=== PATIENT | male | born 1950 | race Caucasian/White ===

== ENCOUNTER 2020-08-26 20:17 | Emergency (ER) | payer OTHER ==
[2020-08-26] MEDS ORDERED: Acetaminophen/HYDROcodone 325-5 MG Tab PO ONE (20:18)
[2020-08-26 21:11] LABS: CHLORIDE,CL 101 mmol/L (98-107); SODIUM,NA 140 mmol/L (136-145)
--- NOTE | 2020-08-26 21:21 | CR ---
PROCEDURE INFORMATION: Exam: XR Left Ribs with PA Chest, 3 Views Exam date and time: 08/26/2020 8:39 PM Age: 70 years old Clinical indication: Injury or trauma; Fall; Rib area, left side; Blunt trauma; Injury date: 08/26/20; Additional info: Fall, pain TECHNIQUE: Imaging protocol: XR Left ribs 3 views with PA chest. COMPARISON: No relevant prior studies available. FINDINGS: Lungs: There is mild nonspecific patchy linear density at left lung base which could be atelectatic, or inflammatory. The right lung is clear. Pleural spaces: No pleural effusion. No pneumothorax. Bilateral lateral pleural thickening likely reflect subpleural fat deposition. Heart/Mediastinum: The heart is not enlarged. Bones/joints: No rib fracture seen. No acute bony findings are identified. IMPRESSION: There is mild nonspecific patchy linear density at left lung base which could be atelectatic, or inflammatory.
--- NOTE | 2020-08-26 21:25 | EDM.PDOC ---
ED HPI GENERAL MEDICAL PROBLEM - General Chief Complaint: Head Injury Stated Complaint: FELL ON ICE, DIZZY Time Seen by Provider: 08/26/20 21:00 Source of Information: Reports: Patient, Family, RN, RN Notes Reviewed History Limitations: Reports: No Limitations - History of Present Illness INITIAL COMMENTS - FREE TEXT/NARRATIVE: Patient is a 70-year-old male who presents to ER with complaint of slipping on the ice. States it happened around 6 PM this evening. Patient states he hit his left shoulder, left rib area, and head on the ground. Patient complains of pain to the left ribs, left shoulder. Denies headache at this time does complain of some neck pain. Denies loss of consciousness with the fall. States he was dizzy right away after the fall but this has since resolved. Patient rates current pain at a 4/10. Patient admits to some shortness of breath due to the pain in the rib area. Denies any exposure to Covid, states he has never had Covid. Onset: Today, Sudden Left Chest Pain Score (Numeric/FACES): 4 - Related Data Allergies Allergy/AdvReac Type Severity Reaction Status Date / Time NSAIDS (Non-Steroidal Allergy Abdominal Verified 08/26/20 20:28 Anti-Inflamma Pain Home Meds: Home Meds Losartan Potassium 25 mg PO DAILY 08/26/20 [History] atorvaSTATin Calcium [Atorvastatin Calcium] 80 mg PO DAILY 08/26/20 [History] hydroCHLOROthiazide [Hydrochlorothiazide] 12.5 mg PO DAILY 08/26/20 [History] Past Medical History Cardiovascular History: Reports: High Cholesterol, Hypertension - Past Surgical History HEENT Surgical History: Reports: Other (See Below) Other HEENT Surgeries/Procedures: torn retinal repair Musculoskeletal Surgical History: Reports: Arthroscopic Knee Social & Family History - Tobacco Use Tobacco Use Status *Q: Never Tobacco User Second Hand Smoke Exposure: No - Recreational Drug Use Recreational Drug Use: No ED ROS GENERAL - Review of Systems Review Of Systems: Comprehensive ROS is negative, except as noted in HPI. ED EXAM, HEAD INJURY - Physical Exam Exam: See Below Exam Limited By: No Limitations General Appearance: Alert, WD/WN, Mild Distress Head: Atraumatic, Normocephalic Nexus Criteria: Posterior, Midline Cervical Tenderness, Painful Distraction Injuries (Left shoulder, left ribs). No: Evidence of Intoxication, Altered Level of Consciousness, Focal Neurological Deficit Eyes: Bilateral Eye: EOMI, Normal Inspection, PERRL Ears: Normal External Exam, Hearing Grossly Normal Nose: Normal Inspection Throat/Mouth: Normal Inspection, Normal Voice, No Airway Compromise Neck: Normal Alignment, Tenderness (Left), Tender Lateral (Left) Respiratory: No Respiratory Distress, No Accessory Muscle Use, Chest Non-Tender, Decreased Breath Sounds, Other (Tender left ribs) Cardiovascular: Normal Peripheral Pulses, Regular Rate, Rhythm, No Edema, No Gallop, No JVD, No Murmur, No Rub GI/Abdominal Exam: Normal Bowel Sounds, Soft, Non-Tender (Male) Exam: Deferred Rectal (Males) Exam: Deferred Back Exam: Normal Inspection, Decreased Range of Motion Extremities: Normal Inspection, No Pedal Edema, Normal Capillary Refill, Limited Range of Motion (left shoulder) Neurologic: base filler II-XII nml As Tested, No Motor/Sensory Deficits, Alert, Normal Mood/Affect, Oriented x 3 Skin: Normal Color, Warm/Dry - Chapin Coma Score Best Eye Response (Chapin): (4) Open Spontaneously Best Verbal Response (Chapin): (5) Oriented Best Motor Response (Chapin): (6) Obeys Commands Chapin Total: 15 Course - Vital Signs Last Recorded V/S: Last Vital Signs Temp 98.5 F 08/26/20 20:25 Pulse 86 08/26/20 20:25 Resp 18 08/26/20 20:25 BP 153/88 H 08/26/20 20:25 Pulse Ox 94 L 08/26/20 20:25 - Orders/Labs/Meds Labs: Laboratory Tests 08/26/20 08/26/20 08/26/20 Range/Units 20:45 20:45 21:29 WBC 8.0 (5.0-10.0) 10^3/uL RBC 4.80 (4.6-6.2) 10^6/uL Hgb 15.4 (14.0-18.0) g/dL Hct 44.4 (40.0-54.0) % MCV 92.5 (80-100) fL MCH 32.1 (27.0-34.0) pg MCHC 34.7 (33.0-35.0) g/dL Plt Count 170 (150-450) 10^3/uL Neut % (Auto) 62.2 (42.2-75.2) % Lymph % (Auto) 23.9 (20.5-50.1) % Cochran % (Auto) 11.6 H (2-8) % Eos % (Auto) 1.9 (1.0-3.0) % Baso % (Auto) 0.4 (0.0-1.0) % Sodium 140 (136-145) mmol/L Potassium 4.0 (3.5-5.1) mmol/L Chloride 101 (98-107) mmol/L Carbon Dioxide 30 (21-32) mmol/L Anion Gap 13.0 (7-13) mEq/L BUN 22 H (7-18) mg/dL Creatinine 0.97 (0.70-1.30) mg/dL Est Cr Clr Drug Dosing 74.21 mL/min Estimated GFR (MDRD) > 60 BUN/Creatinine Ratio 22.7 (No establ ref range) Glucose 104 H (74-99) mg/dL Calcium 9.1 (8.5-10.1) mg/dL Total Bilirubin 0.5 (0.2-1.0) mg/dL AST 19 (15-37) U/L ALT 37 (16-63) U/L Alkaline Phosphatase 72 (46-116) U/L Total Protein 7.8 (6.4-8.2) g/dL Albumin 4.3 (3.4-5.0) g/dL Globulin 3.5 Albumin/Globulin Ratio 1.2 Urine Color Yellow (YELLOW) Urine Appearance Slightly cloudy (CLEAR) Urine pH 5.0 (5.0-9.0) Ur Specific Hayes >= 1.030 (1.005-1.030) Urine Protein Negative (NEGATIVE) Urine Glucose (UA) Negative (NEGATIVE) Urine Ketones Negative (NEGATIVE) Urine Occult Blood Moderate H (NEGATIVE) Urine Nitrite Negative (NEGATIVE) Urine Bilirubin Negative (NEGATIVE) Urine Urobilinogen 0.2 (0.2-1.0) mg/dL Ur Leukocyte Esterase Negative (NEGATIVE) Urine RBC 20-30 H /HPF Urine WBC 0-5 (0-5/HPF) /HPF Ur Epithelial Cells Rare (NOT SEEN) /HPF Urine Bacteria Rare (0-FEW/HPF) /HPF Urine Mucus Few H (NOT SEEN) /LPF Meds: Medications Discontinued Medications Generic Name Dose Route Start Last Admin Trade Name Freq PRN Reason Stop Dose Admin Hydrocodone Bitart/Acetaminophen 1 tab 08/26/20 23:53 08/27/20 00:05 [employer] 325-10 Mg PO 08/26/20 23:54 1 tab ONETIME ONE Administration Iopamidol 100 ml 08/26/20 21:45 08/26/20 23:08 Isovue-300 (61%) IVPUSH 08/26/20 21:46 100 ml ONETIME ONE Administration Iopamidol 50 ml 08/26/20 23:27 08/26/20 23:38 Isovue-300 (61%) IVPUSH 08/26/20 23:28 25 ml ONETIME ONE Administration - Radiology Interpretation Free Text/Narrative:: Rib xray left: PROCEDURE INFORMATION: Exam: XR Left Ribs with PA Chest, 3 Views Exam date and time: 08/26/2020 8:39 PM Age: 70 years old Clinical indication: Injury or trauma; Fall; Rib area, left side; Blunt trauma; Injury date: 08/26/20; Additional info: Fall, pain TECHNIQUE: Imaging protocol: XR Left ribs 3 views with PA chest. COMPARISON: No relevant prior studies available. FINDINGS: Lungs: There is mild nonspecific patchy linear density at left lung base which could be atelectatic, or inflammatory. The right lung is clear. Pleural spaces: No pleural effusion. No pneumothorax. Bilateral lateral pleural thickening likely reflect subpleural fat deposition. Heart/Mediastinum: The heart is not enlarged. Bones/joints: No rib fracture seen. No acute bony findings are identified. IMPRESSION: There is mild nonspecific patchy linear density at left lung base which could be atelectatic, or inflammatory. Thank you for allowing us to participate in the care of your patient. Dictated and Authenticated by: Derek Marina MD 08/26/2020 9:21 PM Central Time ([place] & [place]) Head CT wo contrast: PROCEDURE INFORMATION: Exam: CT Head Without Contrast Exam date and time: 08/26/2020 8:44 PM Age: 70 years old Clinical indication: Injury or trauma; Fall; Blunt trauma (contusions or hematomas); Additional info: Fall, weaness, dizziness TECHNIQUE: Imaging protocol: Computed tomography of the head without contrast. Radiation optimization: All CT scans at this facility use at least one of these dose optimization techniques: automated exposure control; mA and/or kV adjustment per patient size (includes targeted exams where dose is matched to clinical indication); or iterative reconstruction. COMPARISON: No relevant prior studies available. FINDINGS: Brain: The wooten-white differentiation is preserved. No intracranial mass collection or hemorrhage is seen. Cerebral ventricles: The ventricular size and sulcal pattern is normal. Bones/joints: The temporal bones are symmetric and unremarkable. Paranasal sinuses: The visualized paranasal sinuses are normal. Mastoid air cells: Mastoid air cells well aerated. Vasculature: There is mild diffuse calcific atherosclerotic plaque. Soft tissues: There is no soft tissue abnormality seen. IMPRESSION: No acute intracranial findings. Thank you for allowing us to participate in the care of your patient. Dictated and Authenticated by: Derek Marina MD 08/26/2020 9:25 PM Central Time ([place] & [place]) Left shoulder xray: PROCEDURE INFORMATION: Exam: XR Left Shoulder Exam date and time: 08/26/2020 9:57 PM Age: 70 years old Clinical indication: Injury or trauma; Fall; Blunt trauma (contusions or hematomas); Shoulder; Left; Additional info: Fall, neck pain TECHNIQUE: Imaging protocol: XR Left shoulder. Views: 2 or more views. COMPARISON: No relevant prior studies available. FINDINGS: Bones/joints: There is advanced degenerative change involving the left glenohumeral joint with advanced joint space narrowing, extensive sclerotic and cystic change on both sides of the joint and severe osteophyte formation. There is no evidence of acute fracture. There is no subluxation or dislocation. Soft tissues: There is no soft tissue abnormality seen. IMPRESSION: 1. Fairly advanced degenerative changes as described 2. There is no evidence of acute fracture. Thank you for allowing us to participate in the care of your patient. Dictated and Authenticated by: Derek Marina MD 08/26/2020 11:08 PM Central Time ([place] & [place]) CT Chest Abdomen/Pelvis with contrast: PROCEDURE INFORMATION: Exam: CT Cervical Spine Without Contrast Exam date and time: 08/26/2020 10:03 PM Age: 70 years old Clinical indication: Injury or trauma; Fall; Blunt trauma; Additional info: Fall, neck pain TECHNIQUE: Imaging protocol: Computed tomography images of the cervical spine without contrast. Radiation optimization: All CT scans at this facility use at least one of these dose optimization techniques: automated exposure control; mA and/or kV adjustment per patient size (includes targeted exams where dose is matched to clinical indication); or iterative reconstruction. COMPARISON: No relevant prior studies available. FINDINGS: Bones/joints: Near anatomic alignment. The facets are appropriately oriented. The facet joints demonstrate moderate degenerative hypertrophy and sclerosis. No posterior arch fracture seen. Discs/Spinal canal/Neural foramina: Mild disc space narrowing throughout the cervical segment.There is no evidence of acute fracture.No significant compressive lesion is seen. Lungs: The visualized portions of the lung apices are normal. Vasculature: There is moderate diffuse calcific atherosclerotic plaque. Soft tissues: There is no soft tissue abnormality seen. IMPRESSION: There is no evidence of acute fracture. Thank you for allowing us to participate in the care of your patient. Dictated and Authenticated by: Derek Marina MD 08/26/2020 11:22 PM Central Time ([place] & [place]) CT Cspine wo contrast: PROCEDURE INFORMATION: Exam: CT Cervical Spine Without Contrast Exam date and time: 08/26/2020 10:03 PM Age: 70 years old Clinical indication: Injury or trauma; Fall; Blunt trauma; Additional info: Fall, neck pain TECHNIQUE: Imaging protocol: Computed tomography images of the cervical spine without contrast. Radiation optimization: All CT scans at this facility use at least one of these dose optimization techniques: automated exposure control; mA and/or kV adjustment per patient size (includes targeted exams where dose is matched to clinical indication); or iterative reconstruction. COMPARISON: No relevant prior studies available. FINDINGS: Bones/joints: Near anatomic alignment. The facets are appropriately oriented. The facet joints demonstrate moderate degenerative hypertrophy and sclerosis. No posterior arch fracture seen. Discs/Spinal canal/Neural foramina: Mild disc space narrowing throughout the cervical segment.There is no evidence of acute fracture.No significant compressive lesion is seen. Lungs: The visualized portions of the lung apices are normal. Vasculature: There is moderate diffuse calcific atherosclerotic plaque. Soft tissues: There is no soft tissue abnormality seen. IMPRESSION: There is no evidence of acute fracture. Thank you for allowing us to participate in the care of your patient. Dictated and Authenticated by: Derek Marina MD 08/26/2020 11:22 PM Central Time ([place] & [place]) See rad report Departure - Departure Time of Disposition: 23:54 Disposition: Home, Self-Care 01 Condition: Fair Clinical Impression: Rib fracture Qualifiers: Encounter type: initial encounter Rib fracture type: single rib Fracture type: closed Laterality: left Qualified Code(s): S22.32XA - Fracture of one rib, left side, initial encounter for closed fracture Fall Qualifiers: Encounter type: initial encounter Qualified Code(s): W19.XXXA - Unspecified fall, initial encounter Hematuria Qualifiers: Hematuria type: unspecified type Qualified Code(s): R31.9 - Hematuria, unspecified - Discharge Information *PRESCRIPTION DRUG MONITORING PROGRAM REVIEWED*: No *COPY OF PRESCRIPTION DRUG MONITORING REPORT IN PATIENT JOYCE: No Instructions: Concussion, Adult, [id number], Post-Concussion Syndrome, [id number], Rib Fracture, [id number], Hematoma, [id number], Hematuria, Adult Forms: ED Department Discharge Additional Instructions: Follow up with Dany Fraser regarding blood in urine, and thyroid nodule RX: [employer] as directed for pain Rest Cough and deep breathe frequently to prevent pneumonia Return to the Er with any worsening of problems Sepsis Event Note (ED) - Evaluation Sepsis Screening Result: No Definite Risk - Focused Exam Vital Signs: Vital Signs Temp Pulse Resp BP Pulse Ox 08/26/20 20:25 98.5 F 86 18 153/88 H 94 L
[2020-08-26] MEDS ORDERED: Iopamidol 612 MG/ML 100 ML Bottle IVPUSH ONE (21:45)
--- NOTE | 2020-08-26 23:08 | CR ---
PROCEDURE INFORMATION: Exam: XR Left Shoulder Exam date and time: 08/26/2020 9:57 PM Age: 70 years old Clinical indication: Injury or trauma; Fall; Blunt trauma (contusions or hematomas); Shoulder; Left; Additional info: Fall, neck pain TECHNIQUE: Imaging protocol: XR Left shoulder. Views: 2 or more views. COMPARISON: No relevant prior studies available. FINDINGS: Bones/joints: There is advanced degenerative change involving the left glenohumeral joint with advanced joint space narrowing, extensive sclerotic and cystic change on both sides of the joint and severe osteophyte formation. There is no evidence of acute fracture. There is no subluxation or dislocation. Soft tissues: There is no soft tissue abnormality seen. IMPRESSION: 1. Fairly advanced degenerative changes as described 2. There is no evidence of acute fracture.
--- NOTE | 2020-08-26 23:20 | CT ---
PROCEDURE INFORMATION: Exam: CT Chest With Contrast; Diagnostic Exam date and time: 08/26/2020 10:03 PM Age: 70 years old Clinical indication: Other: Moderate blood in urine TECHNIQUE: Imaging protocol: Diagnostic computed tomography of the chest with contrast. Radiation optimization: All CT scans at this facility use at least one of these dose optimization techniques: automated exposure control; mA and/or kV adjustment per patient size (includes targeted exams where dose is matched to clinical indication); or iterative reconstruction. Contrast material: [id number]; Contrast volume: 125 ml; Contrast route: INTRAVENOUS (IV); COMPARISON: CR Ribs 2V w Chest Lt 08/26/2020 8:39 PM FINDINGS: Thyroid: 23 mm right thyroid nodule. Lungs: The central pulmonary arteries are normalThere are minor subpleural atelectatic densities in the dependent portions of the lungs. The lungs are otherwise clear. Pleural spaces: No pleural effusion. No pneumothorax. Heart: The heart is not enlarged. There is moderate atherosclerotic calcification of the coronary arteries. Aorta: There is mild diffuse calcific and noncalcific atherosclerotic plaque. The thoracic aorta is otherwise normal. No aneurysm. No dissection. Lymph nodes: There is no evidence of lymphadenopathy. Bones/joints: Question nondisplaced fracture anterolateral left 7th rib. No other suspect left rib fractures are seen. No left rib abnormality seen. There is severe endplate sclerosis and osteophyte formation throughout the thoracic segment. The sternum is normal. Soft tissues: There is no soft tissue abnormality seen. IMPRESSION: 1. Question nondisplaced left anterior 7th rib fracture. Correlate with physical findings. 2. No pleural effusion. No pneumothorax. 3. 23 mm right thyroid nodule. Ultrasound recommended. COMMENTS: Consistent with the [employer]'s Incidental Findings Committee white paper (J Am August Radiol 2015): In patients aged 35 years and older with an incidental thyroid nodule equal to or greater than 1.[address], MRI or extrathyroidal US, further evaluation with dedicated thyroid US is recommended for patients with normal life expectancy and without comorbidities. For smaller nodules without suspicious features, no further evaluation or follow up is recommended. PROCEDURE INFORMATION: Exam: CT Abdomen And Pelvis With Contrast Exam date and time: 08/26/2020 10:03 PM Age: 70 years old Clinical indication: Other: Moderate blood in urine TECHNIQUE: Imaging protocol: Computed tomography of the abdomen and pelvis with contrast. Radiation optimization: All CT scans at this facility use at least one of these dose optimization techniques: automated exposure control; mA and/or kV adjustment per patient size (includes targeted exams where dose is matched to clinical indication); or iterative reconstruction. Contrast material: [id number]; Contrast volume: 125 ml; Contrast route: INTRAVENOUS (IV); COMPARISON: CR Ribs 2V w Chest Lt 08/26/2020 8:39 PM FINDINGS: Liver: The liver is normal. Gallbladder and bile ducts: The gallbladder is normal. There is no evidence of biliary ductal dilation. Pancreas: The pancreas is normal. Spleen: The spleen is normal. Adrenal glands: The adrenal glands are normal. Kidneys and ureters: 32 mm simple cyst in the right kidney. No further workup is recommended. 14 mm simple cyst in the left kidney. No further workup is recommended. There is no evidence of hydronephrosis. There is no evidence of urolithiasis. The ureters are normal. There is mild bilateral perinephric inflammatory stranding symmetric in nature, likely results of prior or current inflammatory episodes. Stomach and bowel: Non-specific/nonobstructive intestinal gas pattern. Appendix: The appendix is not specifically identified. There is no evidence of fluid or inflammatory stranding at the base of the cecum. Intraperitoneal space: No free air. No free fluid. Vasculature: There is no aortic aneurysm. There is moderate diffuse calcific atherosclerotic plaque. Lymph nodes: There is no adenopathy. Urinary bladder: Bladder is largely obscured by artifact from the hips, no gross bladder abnormality seen. Reproductive: The prostate demonstrates moderate nonspecific enlargement. The seminal vesicles are normal. Bones/joints: The patient has undergone bilateral total hip replacements. The prosthetic devices are grossly intact. The the devices are creating significant extensive artifact which is substantially limiting pelvic detail. There is moderate disc space narrowing and endplate sclerosis and osteophyte formation identified throughout the lumbar segment. Moderate diffuse facet disease throughout. There is no evidence of acute fracture. Soft tissues: There is a moderate fat containing right inguinal hernia. No bowel loops are involved. There is no soft tissue abnormality seen. IMPRESSION: 1. No acute urinary tract abnormalities are seen. Bladder visualization is extremely limited due to artifact from the hip replacements. 2. No sign of acute trauma in the abdomen or pelvis otherwise. 3. 32 mm simple cyst in the right kidney. No further workup is recommended. 4. 14 mm simple cyst in the left kidney. No further workup is recommended. COMMENTS: Consistent with the [employer]'s Incidental Findings Committee white paper (J Am August Radiol 2018): Any incidental renal lesion less than 1 cm or classified as too small to characterize, or any incidental cystic renal lesion characterized as simple-appearing, is likely benign. No follow-up imaging is recommended for these lesions per consensus recommendations based on imaging criteria.
--- NOTE | 2020-08-26 23:22 | CT ---
PROCEDURE INFORMATION: Exam: CT Cervical Spine Without Contrast Exam date and time: 08/26/2020 10:03 PM Age: 70 years old Clinical indication: Injury or trauma; Fall; Blunt trauma; Additional info: Fall, neck pain TECHNIQUE: Imaging protocol: Computed tomography images of the cervical spine without contrast. Radiation optimization: All CT scans at this facility use at least one of these dose optimization techniques: automated exposure control; mA and/or kV adjustment per patient size (includes targeted exams where dose is matched to clinical indication); or iterative reconstruction. COMPARISON: No relevant prior studies available. FINDINGS: Bones/joints: Near anatomic alignment. The facets are appropriately oriented. The facet joints demonstrate moderate degenerative hypertrophy and sclerosis. No posterior arch fracture seen. Discs/Spinal canal/Neural foramina: Mild disc space narrowing throughout the cervical segment.There is no evidence of acute fracture.No significant compressive lesion is seen. Lungs: The visualized portions of the lung apices are normal. Vasculature: There is moderate diffuse calcific atherosclerotic plaque. Soft tissues: There is no soft tissue abnormality seen. IMPRESSION: There is no evidence of acute fracture.
[2020-08-26] MEDS ORDERED: Iopamidol 612 MG/ML 50 ML SDV IVPUSH ONE (23:27)
[2020-08-26] MEDS ORDERED: Acetaminophen/HYDROcodone 325-10 MG Tab PO ONE (23:53)
[2020-08-27] MEDS ORDERED: Acetaminophen/HYDROcodone 325-10 MG Tab ONE (00:32)
== END 2020-08-27 00:48 | disposition home or self-care (01) ==
LOC: DL.ED 20:17
DX: S22.32XA Fracture of one rib, left side, initial encounter for closed fracture (principal); Z88.8 Allergy status to other drugs, medicaments and biological substances; R31.9 Hematuria, unspecified; W00.0XXA Fall on same level due to ice and snow, initial encounter
CPT/HCPCS: 36415; 70450; 71101; 71260; 72125; 73030; 74177; 80053; 81001; 85025; 99284; A9270; Q9967

== ENCOUNTER 2025-02-15 14:27 | Inpatient (IN) | payer MEDICARE, OTHER ==
[2025-02-15] MEDS ORDERED: Sodium Chloride 0.9% 10 ML Syringe FLUSH PRN ×2 (15:09)
[2025-02-15] MEDS: Nystatin Topical Powder 60 GM Bottle TOP SCH (15:24)
[2025-02-15] MEDS: Potassium Chloride 10% 20 MEQ/15 ML Soln 15 ML UD Cup PO SCH (17:20)
[2025-02-15] MEDS: Sodium Chloride 0.9% 10 ML Syringe FLUSH SCH (21:55)
[2025-02-15] MEDS: Heparin Sodium 5,000 Units/ML Vial SUBCUT SCH (21:55)
[2025-02-16] MEDS: methylPREDNISolone Sodium Succinate 40 MG/1 ML SDV IVPUSH SCH (09:27)
[2025-02-19 06:32] LABS: PLATELET COUNT,PLT 244 10^3/uL (150-450); RED BLOOD CELL COUNT 3.59 10^6/uL (4.6-6.2); WHITE BLOOD CELL COUNT,WBC 10.4 10^3/uL (5.0-10.0)
[2025-02-19 06:42] LABS: BLOOD UREA NITROGEN,BUN 29.0 mg/dL (7-18); CARBON DIOXIDE,CO2 29.0 mmol/L (21-32); CHLORIDE,CL 104.0 mmol/L (98-107); CREATININE 0.85 mg/dL (0.70-1.30); EST CRCL DRUG DOSING (CG) 84.95 mL/min; GLUCOSE RANDOM 89.0 mg/dL (70-99); POTASSIUM,K 4.4 mmol/L (3.5-5.1); SODIUM,NA 139.0 mmol/L (136-145)
[2025-02-19 06:44] LABS: ESTIMATED GFR 92.0 mL/min (>=60)
[2025-02-19 07:02] LABS: BASOPHILS PERCENT AUTO 0.1 % (0.0-1.0); EOSINOPHILS PERCENT AUTO 0.4 % (1.0-3.0); LYMPHOCYTES PERCENT AUTO 27.0 % (20.5-50.1); MONOCYTES PERCENT AUTO 10.1 % (2-8); NEUTROPHILS PERCENT AUTO 62.4 % (42.2-75.2)
[2025-02-19 08:17] LABS: LYMPHOCYTES PERCENT MAN 35 % (20-50); MONOCYTES PERCENT MAN 8 % (2-8); SEG NEUTROPHILS PERCENT MAN 57 % (42-75)
[2025-02-19 15:04] LABS: T4 FREE 0.87 ng/dL (0.76-1.46); TSH ULTRASENSITIVE 3.51 uIU/mL (0.36-3.74)
[2025-02-20 06:33] LABS: PLATELET COUNT,PLT 229 10^3/uL (150-450); RED BLOOD CELL COUNT 3.59 10^6/uL (4.6-6.2); WHITE BLOOD CELL COUNT,WBC 10.8 10^3/uL (5.0-10.0)
[2025-02-20 06:37] LABS: LYMPHOCYTES PERCENT AUTO 24.5 % (20.5-50.1); NEUTROPHILS PERCENT AUTO 65.0 % (42.2-75.2)
[2025-02-20 06:38] LABS: BASOPHILS PERCENT AUTO 0.1 % (0.0-1.0); EOSINOPHILS PERCENT AUTO 0.3 % (1.0-3.0); MONOCYTES PERCENT AUTO 10.1 % (2-8)
[2025-02-20 07:07] LABS: BAND PERCENT MAN 2 %; EOSINOPHILS PERCENT MAN 1 % (1-3); LYMPHOCYTES PERCENT MAN 16 % (20-50); MONOCYTES PERCENT MAN 11 % (2-8); SEG NEUTROPHILS PERCENT MAN 70 % (42-75)
== END 2025-02-21 11:57 | disposition home health service (06) | DRG 948 ==
LOC: DL.MS 15:15
PROVIDERS: ADMIT Internal Medicine; ATTEND Student in an Organized Health Care Education/Training Program
DX: R53.1 Weakness (principal); G20.A1 Parkinson's disease without dyskinesia, without mention of fluctuations; G40.909 Epilepsy, unspecified, not intractable, without status epilepticus; I50.9 Heart failure, unspecified; E78.00 Pure hypercholesterolemia, unspecified; N40.0 Benign prostatic hyperplasia without lower urinary tract symptoms; M19.90 Unspecified osteoarthritis, unspecified site; I11.0 Hypertensive heart disease with heart failure; D53.9 Nutritional anemia, unspecified; N31.9 Neuromuscular dysfunction of bladder, unspecified; D63.8 Anemia in other chronic diseases classified elsewhere; G89.29 Other chronic pain; Z88.6 Allergy status to analgesic agent; Z91.040 Latex allergy status; Z98.890 Other specified postprocedural states; Z79.899 Other long term (current) drug therapy; Z79.891 Long term (current) use of opiate analgesic
CPT/HCPCS: 36415; 80048; 82272; 82728; 82947; 83735; 84439; 84443; 85025; 97116-GP; 97161-GP; 97165-GO; 97530-GO; 97530-GP; 99306; 99308; 99315; A9270-GY; J1644; J1650; J2919; J3490; Q0138